=== PATIENT | female | born 1975 | race American Indian/Alaskan Native ===

== ENCOUNTER 2017-11-14 17:49 | Emergency (ER) | payer SELFPAY ==
[2017-11-14 19:55] LABS: Bacteria,Urine 1+ /HPF (Negative); Bilirubin,Urine NEG (Negative); Blood,Urine NEG (Negative); Color,Urine Yellow (Yellow); Mucus,Urine FEW /HPF; Protein,Urine <15 mg/dL mg/dL (Negative); Urobilinogen,Urine < 2.0 mg/dL (<2.0)
[2017-11-14] MEDS ORDERED: TORADOL IM ONE (21:53)
--- NOTE | 2017-11-14 21:57 | Emergency Department Report ---
ED Female HPI - General Chief complaint: Abdominal Pain Stated complaint: URINE RETENTION Time Seen by Provider: 11/14/17 21:52 Source: patient Mode of arrival: Ambulatory Limitations: No Limitations - History of Present Illness Initial comments: 42-year-old female comes in complaining of urinary retention 10 days. She reports she is able to urinate but feels like she is not able to empty all the way. She reports of right flank pain nausea and dysuria. Patient denies any blood in the urine. She denies any fever does admit to nausea and some chills. Patient has past medical history of GERD she has no known drug allergies. MD Complaint: dysuria -: days(s) (10) Location: suprapubic Radiation: R flank Severity: severe Severity scale (0 -10): 8 Quality: cramping, stabbing Consistency: constant Improves with: none Worsens with: urination, movement Are you Now?: No Associated Symptoms: nausea/vomiting, fever/chills - Related Data Sexually active: Yes (men ) Previous Rx's Medication Instructions Recorded Last Taken Type Cephalexin [Keflex] 500 mg PO BID #20 capsule 11/14/17 Unknown Rx Ibuprofen [Motrin 800 MG tab] 800 mg PO Q8HR PRN #15 tablet 11/14/17 Unknown Rx Allergies Allergy/AdvReac Type Severity Reaction Status Date / Time No Known Allergies Allergy Unverified 11/14/17 17:55 ED Review of Systems ROS: Stated complaint: URINE RETENTION Other details as noted in HPI Constitutional: chills Eyes: denies: eye pain, eye discharge, vision change ENT: denies: ear pain, throat pain Respiratory: denies: cough, shortness of breath, wheezing Cardiovascular: denies: chest pain, palpitations Endocrine: no symptoms reported Gastrointestinal: nausea Genitourinary: urgency, dysuria, frequency. denies: hematuria Musculoskeletal: denies: back pain, joint swelling, arthralgia Skin: denies: rash, lesions Neurological: denies: headache, weakness, paresthesias Psychiatric: denies: anxiety, depression Hematological/Lymphatic: denies: easy bleeding, easy bruising ED Past Medical Hx - Past Medical History Previous Medical History?: No Hx GERD: Yes - Surgical History Additional Surgical History: TUBAL LIGATION, BILE DUCT HOLE REPAIRED - Social History Smoking Status: Current Every Day Smoker Substance Use Type: None - Medications Home Medications: Home Medications Medication Instructions Recorded Confirmed Last Taken Type Cephalexin [Keflex] 500 mg PO BID #20 capsule 11/14/17 Unknown Rx Ibuprofen [Motrin 800 MG tab] 800 mg PO Q8HR PRN #15 tablet 11/14/17 Unknown Rx ED Physical Exam - General Limitations: No Limitations General appearance: alert, in no apparent distress - Head Head exam: Present: atraumatic, normocephalic - Eye Eye exam: Present: normal appearance - ENT ENT exam: Present: mucous membranes moist - Neck Neck exam: Present: normal inspection - Respiratory Respiratory exam: Present: normal lung sounds bilaterally. Absent: respiratory distress - Cardiovascular Cardiovascular Exam: Present: regular rate, normal rhythm. Absent: systolic murmur, diastolic murmur, rubs, gallop - GI/Abdominal GI/Abdominal exam: Present: soft, tenderness (right suprapubic) - Extremities Exam Extremities exam: Present: normal inspection - Back Exam Back exam: Present: full ROM, CVA tenderness (R) - Neurological Exam Neurological exam: Present: alert, oriented X3 - Psychiatric Psychiatric exam: Present: normal affect, normal mood - Skin Skin exam: Present: warm, dry, intact, normal color. Absent: rash ED Course Vital Signs 11/14/17 17:55 Temperature 99.4 F Pulse Rate 103 H Respiratory 18 Rate Blood Pressure 115/72 O2 Sat by Pulse 100 Oximetry ED Medical Decision Making - Medical Decision Making Patient's been evaluated by this provider fast track. Discussed the patient that her urine came back positive for urinary tract infection. There is no hematuria noted therefore no CT scan at this time is necessary. Discussed the patient I'll place her antibiotics for 10 days. Discussed the patient to increase her fluids and cranberry juice be sure to void after intercourse since patient admits to having a lot of intercourse. Discussed the patient to follow up with her primary care provider if symptoms persist or gets worse. Critical care attestation.: If time is entered above; I have spent that time in minutes in the direct care of this critically ill patient, excluding procedure time. ED Disposition Clinical Impression: UTI (urinary tract infection) Qualifiers: Urinary tract infection type: acute cystitis Hematuria presence: without hematuria Qualified Code(s): N30.00 - Acute cystitis without hematuria Disposition: TO HOME OR SELFCARE Is pt being admited?: No Does the pt Need Aspirin: No Condition: Stable Instructions: Abdominal Pain (ED), Urinary Tract Infection in Women (ED) Additional Instructions: Complete antibiotic as prescribed. Take ibuprofen as needed for pain. Please increase her fluid intake by 2 L. Follow up with her primary care provider if symptoms persist or gets worse. Prescriptions: Cephalexin [Keflex] 500 mg PO BID #20 capsule Ibuprofen [Motrin 800 MG tab] 800 mg PO Q8HR PRN #15 tablet PRN Reason: Pain Referrals: PRIMARY CARE, [Primary Care Provider] - 3-5 Days [facility] [Provider Group] - 3-5 Days Forms: Work/School Release Form(ED), Accompanied Note
[2017-11-14 22:38] VITALS: BP 117/76
== END 2017-11-14 22:37 | disposition home or self-care (01) ==
LOC: ED 17:49
DX: N30.00 Acute cystitis without hematuria (principal)
CPT/HCPCS: 81001; 96372; 99283; J1885

== ENCOUNTER 2019-01-29 18:15 | Emergency (ER) | payer SELFPAY ==
[2019-01-29 18:33] VITALS: BP 124/70
[2019-01-29] MEDS ORDERED: TORADOL IM STA (20:27)
--- NOTE | 2019-01-29 20:38 | Emergency Department Report ---
ED Back Pain/Injury HPI - General Chief Complaint: Back Pain/Injury Stated Complaint: BACK PAIN Time Seen by Provider: 01/29/19 20:11 Source: patient Limitations: No Limitations - History of Present Illness Initial Comments: 43-year-old female was admitted department complaining of chronic recurrent back pain was in [place] on vacation with a couple granddaughter causing a reem ergence of his back pain. She states that there is no change in character or intensity from the previous flareup with [id number]-[id number] medication is not helping. 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 Reports no numbness or tingling, no saddle paresthesia. No urinary incontinence or urinary retention. No loss of bowel. Pain is dull and throbbing and worse with certain range of motion and palpation. Similar Symptoms Previously: No Place: home Radiation: buttocks (left buttocks region) Quality: dull Consistency: constant Improves With: none Worsens With: none Associated Symptoms: denies: weakness, chest pain, numbness, difficulty walking, cough, constipation, abdominal pain, rash, seizure, shortness of breath - Related Data Previous Rx's Medication Instructions Recorded Last Taken Type Cephalexin [Keflex] 500 mg PO BID #20 capsule 11/14/17 Unknown Rx Ibuprofen [Motrin 800 MG tab] 800 mg PO Q8HR PRN #15 tablet 11/14/17 Unknown Rx Ketorolac [Toradol] 10 mg PO Q6H PRN #15 tablet 01/29/19 Unknown Rx methOCARBAMOL [Robaxin] 750 mg PO Q8H PRN #21 tablet 01/29/19 Unknown Rx Allergies Allergy/AdvReac Type Severity Reaction Status Date / Time No Known Allergies Allergy Verified 01/29/19 18:16 ED Review of Systems ROS: Stated complaint: BACK PAIN Other details as noted in HPI Comment: All other systems reviewed and negative ED Past Medical Hx - Past Medical History Hx GERD: Yes - Surgical History Hx Cholecystectomy: Yes Additional Surgical History: TUBAL LIGATION, BILE DUCT HOLE REPAIRED CARPEL TUNNEL - Social History Smoking Status: Never Smoker Substance Use Type: None - Medications Home Medications: Home Medications Medication Instructions Recorded Confirmed Last Taken Type Cephalexin [Keflex] 500 mg PO BID #20 capsule 11/14/17 Unknown Rx Ibuprofen [Motrin 800 MG tab] 800 mg PO Q8HR PRN #15 tablet 11/14/17 Unknown Rx Ketorolac [Toradol] 10 mg PO Q6H PRN #15 tablet 01/29/19 Unknown Rx methOCARBAMOL [Robaxin] 750 mg PO Q8H PRN #21 tablet 01/29/19 Unknown Rx ED Physical Exam - General Limitations: No Limitations General appearance: alert, in no apparent distress - Head Head exam: Present: atraumatic, normocephalic - Eye Eye exam: Present: normal appearance - ENT ENT exam: Present: mucous membranes moist - Neck Neck exam: Present: normal inspection - Respiratory Respiratory exam: Present: normal lung sounds bilaterally. Absent: respiratory distress - Cardiovascular Cardiovascular Exam: Present: regular rate, normal rhythm. Absent: systolic murmur, diastolic murmur, rubs, gallop - GI/Abdominal GI/Abdominal exam: Present: soft, normal bowel sounds - Extremities Exam Extremities exam: Present: normal inspection - Back Exam Back exam: Present: normal inspection, tenderness (tenderness to the left sacroiliac region. There is pain with seated straight leg raise as well.), paraspinal tenderness. Absent: CVA tenderness (R), CVA tenderness (L), vertebral tenderness - Neurological Exam Neurological exam: Present: alert, oriented X3, CN II-XII intact, normal gait - Psychiatric Psychiatric exam: Present: normal affect, normal mood - Skin Skin exam: Present: warm, dry, intact, normal color. Absent: rash ED Course Vital Signs 01/29/19 18:30 Temperature 98.3 F Pulse Rate 73 Respiratory 16 Rate Blood Pressure 124/70 [Left] O2 Sat by Pulse 96 Oximetry ED Medical Decision Making - Medical Decision Making A 43-year-old female with acute on chronic back pain. 2. Possibly lifting her granddaughter may sustained a strain or have aggravated a lumbar go with radiculopathy.. Requesting work release to give her a work note for 48 hours and give her some medication to help to resolve the pain previously. She had to get spinal injections when she had her last flareup advisor to follow-up with her previous orthopedic provider for further evaluation and treatment recommendations and likely a joint injection Critical care attestation.: If time is entered above; I have spent that time in minutes in the direct care of this critically ill patient, excluding procedure time. ED Disposition Clinical Impression: Lumbago with sciatica, left side Disposition: TO HOME OR SELFCARE Is pt being admited?: No Does the pt Need Aspirin: No Condition: Stable Instructions: Lumbar Radiculopathy (ED) Prescriptions: methOCARBAMOL [Robaxin] 750 mg PO Q8H PRN #21 tablet PRN Reason: Spasms Ketorolac [Toradol] 10 mg PO Q6H PRN #15 tablet PRN Reason: Pain Referrals: PRIMARY CAREMD [Primary Care Provider] - 3-5 Days BABAK SEGUNDO MD [Staff Physician] - 3-5 Days
== END 2019-01-29 21:13 | disposition home or self-care (01) ==
LOC: ED 18:15
DX: M54.42 Lumbago with sciatica, left side (principal); K21.9 Gastro-esophageal reflux disease without esophagitis; Z98.51 Tubal ligation status; Z90.49 Acquired absence of other specified parts of digestive tract
CPT/HCPCS: 96372; 99282; J1885

== ENCOUNTER 2019-03-09 20:42 | Emergency (ER) | payer SELFPAY ==
--- NOTE | 2019-03-09 20:53 | Event Note ---
ED Screening Note Date of service: 03/09/19 Time: 20:48 ED Screening Note: 43 y o female with a hx of back pain presents with worsening back pain states was seen here last week for same pain ststaes hx of herniated disc denies dysuria, fever This initial assessment/diagnostic orders/clinical plan/treatment(s) is/are subject to change based on patients health status, clinical progression and re- assessment by fellow clinical providers in the ED. Further treatment and workup at subsequent clinical providers discretion. Patient/guardian urged not to elope from the ED as their condition may be serious if not clinically assessed and managed. Initial orders include: Acc evaluate pain control
[2019-03-09] MEDS ORDERED: MORPHINE IM STA (23:59)
[2019-03-09] MEDS ORDERED: DELTASONE PO STA (23:59)
--- NOTE | 2019-03-10 00:06 | Emergency Department Report ---
ED Back Pain/Injury HPI - General Chief Complaint: Back Pain/Injury Stated Complaint: BACK PAIN Time Seen by Provider: 03/09/19 20:47 Source: patient Limitations: No Limitations - History of Present Illness Initial Comments: 43-year-old female with past history of chronic recurrent back pain presents to emergency department complaining of continued flareup. States that she did to her nephew several weeks ago, she developed severe pain to the lower back. She initially seen emergency Department treatment time for inflammatory muscle relaxers, but reports continued pain to the back despite taking the medication. She has continued to work at [employer] the [employer] working 60-80 weeks and is unsure why her back has improved. Reports no loss of bowel or bladder, no s addle paresthesia. MD Complaint: back pain -: Gradual Similar Symptoms Previously: No Radiation: none Severity: mild Quality: dull Consistency: constant Improves With: none Worsens With: none Associated Symptoms: denies: chest pain, difficulty walking, cough, incontinence, fever/chills, constipation, abdominal pain, rash, seizure, shortness of breath - Related Data Previous Rx's Medication Instructions Recorded Last Taken Type Cephalexin [Keflex] 500 mg PO BID #20 capsule 11/14/17 Unknown Rx Ibuprofen [Motrin 800 MG tab] 800 mg PO Q8HR PRN #15 tablet 11/14/17 Unknown Rx Ketorolac [Toradol] 10 mg PO Q6H PRN #15 tablet 01/29/19 Unknown Rx methOCARBAMOL [Robaxin] 750 mg PO Q8H PRN #21 tablet 01/29/19 Unknown Rx methOCARBAMOL [Robaxin TAB] 750 mg PO Q8H #20 tablet 03/10/19 Unknown Rx predniSONE [Deltasone] 20 mg PO QDAY #7 tab 03/10/19 Unknown Rx Allergies Allergy/AdvReac Type Severity Reaction Status Date / Time No Known Allergies Allergy Verified 01/29/19 18:16 ED Review of Systems ROS: Stated complaint: BACK PAIN Other details as noted in HPI Comment: All other systems reviewed and negative ED Past Medical Hx - Past Medical History Previous Medical History?: Yes Hx GERD: Yes - Surgical History Past Surgical History?: Yes Hx Cholecystectomy: Yes Additional Surgical History: TUBAL LIGATION, BILE DUCT HOLE REPAIRED CARPEL TUNNEL - Social History Smoking Status: Current Every Day Smoker Substance Use Type: None - Medications Home Medications: Home Medications Medication Instructions Recorded Confirmed Last Taken Type Cephalexin [Keflex] 500 mg PO BID #20 capsule 11/14/17 Unknown Rx Ibuprofen [Motrin 800 MG tab] 800 mg PO Q8HR PRN #15 tablet 11/14/17 Unknown Rx Ketorolac [Toradol] 10 mg PO Q6H PRN #15 tablet 01/29/19 Unknown Rx methOCARBAMOL [Robaxin] 750 mg PO Q8H PRN #21 tablet 01/29/19 Unknown Rx methOCARBAMOL [Robaxin TAB] 750 mg PO Q8H #20 tablet 03/10/19 Unknown Rx predniSONE [Deltasone] 20 mg PO QDAY #7 tab 03/10/19 Unknown Rx ED Physical Exam - General Limitations: No Limitations General appearance: alert, in no apparent distress - Head Head exam: Present: atraumatic, normocephalic - Eye Eye exam: Present: normal appearance, PERRL, EOMI Pupils: Present: normal accommodation - ENT ENT exam: Present: normal exam, mucous membranes moist, TM's normal bilaterally - Neck Neck exam: Present: normal inspection, tenderness, full ROM. Absent: lymphadenopathy, thyromegaly - Respiratory Respiratory exam: Present: normal lung sounds bilaterally. Absent: respiratory distress, wheezes, chest wall tenderness, accessory muscle use - Cardiovascular Cardiovascular Exam: Present: regular rate, normal rhythm. Absent: systolic murmur, diastolic murmur, rubs, gallop - GI/Abdominal GI/Abdominal exam: Present: soft, normal bowel sounds - Extremities Exam Extremities exam: Present: normal inspection - Back Exam Back exam: Present: normal inspection, tenderness - Neurological Exam Neurological exam: Present: alert, oriented X3 - Psychiatric Psychiatric exam: Present: normal affect, normal mood - Skin Skin exam: Present: warm, dry, intact, normal color. Absent: rash ED Course Vital Signs 03/09/19 03/10/19 20:47 00:56 Temperature 98.2 F Pulse Rate 86 Respiratory 18 16 Rate Blood Pressure 128/76 O2 Sat by Pulse 99 Oximetry ED Medical Decision Making - Medical Decision Making With 3-year-old female with chronic, recurrent lower back pain. She didn't play golf for the last several months. CT scan does confirm arthritis with some lumbar disc pathology. She's been instructed to follow-up with orthopedic for for evaluation and treatment options and also understands she needs an MRI and likely nerve conduction studies as well. She did managing her chronic pain with Motrin. We'll give her some muscle relaxers and still was in the emergency department and advised her to decrease her work day from 60-8 hours to 20-40 hours also been instructed on proper icing and lumbar therapy Critical care attestation.: If time is entered above; I have spent that time in minutes in the direct care of this critically ill patient, excluding procedure time. ED Disposition Clinical Impression: Chronic lumbar radiculopathy, Lumbar disc herniation with radiculopathy, Discogenic low back pain Disposition: TO HOME OR SELFCARE Is pt being admited?: No Does the pt Need Aspirin: No Condition: Stable Instructions: Lumbar Radiculopathy (ED), Arthralgia (ED), Low Back Strain (ED) Prescriptions: predniSONE [Deltasone] 20 mg PO QDAY #7 tab methOCARBAMOL [Robaxin TAB] 750 mg PO Q8H #20 tablet Referrals: ALIS MALAVE MD [Primary Care Provider] - 3-5 Days BABAK SEGUNDO MD [Staff Physician] - 3-5 Days
[2019-03-10] MEDS ORDERED: ZOFRAN ODT ONE (00:40)
--- NOTE | 2019-03-10 01:19 | Cat Scan Report ---
CT lumbar spine wo con INDICATION: MAIN: severe chronic lower back pain. TECHNIQUE: All CT scans at this location are performed using the following dose modulation technique: Automated exposure control. CONTRAST: None. COMPARISON: None available. FINDINGS: Satisfactory alignment without vertebral compression. Prominent degenerative disc disease i s present at L5-S1. There is discogenic sclerosis at both L5 and S1 as well as disc bulging. No local ized disc herniation is present. Negative for advanced facet disease. IMPRESSION: Localized prominent degenerative disc disease at L5-S1 with narrowing, vacuum phenomenon and prominent discogenic sclerosis. Signer Name: Andrew Pack MD Signed: 03/10/2019 1:15 AM Workstation Name: [id number]
[2019-03-10] MEDS ORDERED: ZOFRAN ODT PO ONE (03:55)
[2019-03-10 04:00] VITALS: BP 117/72
== END 2019-03-10 03:58 | disposition home or self-care (01) ==
LOC: ED 20:42
DX: M54.16 Radiculopathy, lumbar region (principal); M54.5 Low back pain
CPT/HCPCS: 72131; 96372; 99283; J2270; J7512; Q0162

== ENCOUNTER 2019-05-05 02:26 | Inpatient (IN) | payer SELFPAY ==
[2019-05-05] MEDS ORDERED: MORPHINE IV ONE ×2 (02:39→05:45)
[2019-05-05] MEDS ORDERED: ZOFRAN IV ONE ×3 (02:39→08:27)
[2019-05-05] MEDS ORDERED: ZOFRAN ONE (02:41)
[2019-05-05] MEDS ORDERED: MORPHINE ONE (02:41)
[2019-05-05 03:01] LABS: Basophils % (Auto) 0.2 % (0.0-1.8); Hematocrit 51.6 % (30.3-42.9); Hemoglobin 17.9 gm/dl (10.1-14.3); Lymphocytes # (Auto) 1.4 K/mm3 (1.2-5.4); Mean Corpuscular HGB Conc 35 % (30-34); Mean Corpuscular Volume 90 fl (79-97); Monocytes # (Auto) 1.8 K/mm3 (0.0-0.8); Platelet Count 446 K/mm3 (140-440); Red Blood Count 5.75 M/mm3 (3.65-5.03); Red Cell Distribution Width 13.5 % (13.2-15.2)
[2019-05-05] MEDS ORDERED: TORADOL IV ONE (03:35)
[2019-05-05] MEDS ORDERED: TORADOL ONE (03:38)
[2019-05-05 03:46] LABS: Albumin 5.8 g/dL (3.9-5)
[2019-05-05] MEDS ORDERED: NACL 0.9% 1000 ML IV ONE (04:19)
[2019-05-05] MEDS ORDERED: CEFEPIME/NS 2 GM/100 ML 2 GM/100 ML BAG IV ONE (04:19)
--- NOTE | 2019-05-05 07:57 | Emergency Department Report ---
ED Abdominal Pain HPI - General Chief Complaint: Abdominal Pain Stated Complaint: VOMITING Time Seen by Provider: 05/05/19 07:44 Source: patient Mode of arrival: Wheelchair Limitations: No Limitations - History of Present Illness Initial Comments: Patient is a 43-year-old female that presents emergency room with complaints of abdominal pain and intractable nausea vomiting. Patient states her pain started yesterday. Patient denies fever and chills. Patient states the pain is in her generalized abdomen. Patient states her pain is a 10 out of 10. Patient states her pain is better with rest and worse with movement and vomiting. MD Complaint: abdominal pain -: Sudden Location: diffuse Radiation: none Migration to: no migration Severity: severe Severity scale (0 -10): 10 Quality: stabbing Consistency: constant Improves With: rest Worsens With: vomiting, movement Associated Symptoms: nausea, vomiting. denies: diarrhea, fever, chills, constipation, dysuria, hematemesis, hematochezia, melena, hematuria, anorexia, syncope - Related Data LMP (females 10-50): this week Previous Rx's Medication Instructions Recorded Last Taken Type Cephalexin [Keflex] 500 mg PO BID #20 capsule 11/14/17 Unknown Rx Ibuprofen [Motrin 800 MG tab] 800 mg PO Q8HR PRN #15 tablet 11/14/17 Unknown Rx Ketorolac [Toradol] 10 mg PO Q6H PRN #15 tablet 01/29/19 Unknown Rx methOCARBAMOL [Robaxin] 750 mg PO Q8H PRN #21 tablet 01/29/19 Unknown Rx methOCARBAMOL [Robaxin TAB] 750 mg PO Q8H #20 tablet 03/10/19 Unknown Rx predniSONE [Deltasone] 20 mg PO QDAY #7 tab 03/10/19 Unknown Rx Allergies Allergy/AdvReac Type Severity Reaction Status Date / Time No Known Allergies Allergy Verified 01/29/19 18:16 ED Review of Systems ROS: Stated complaint: VOMITING Other details as noted in HPI Constitutional: denies: chills, fever Eyes: denies: eye pain, eye discharge, vision change ENT: denies: ear pain, throat pain Respiratory: denies: cough, shortness of breath, wheezing Cardiovascular: denies: chest pain, palpitations Endocrine: no symptoms reported Gastrointestinal: abdominal pain, nausea, vomiting. denies: diarrhea Genitourinary: denies: urgency, dysuria, discharge Musculoskeletal: denies: back pain, joint swelling, arthralgia Skin: denies: rash, lesions Neurological: denies: headache, weakness, paresthesias Psychiatric: denies: anxiety, depression Hematological/Lymphatic: denies: easy bleeding, easy bruising ED Past Medical Hx - Past Medical History Previous Medical History?: Yes Hx GERD: Yes - Surgical History Past Surgical History?: Yes Hx Cholecystectomy: Yes Additional Surgical History: TUBAL LIGATION, BILE DUCT HOLE REPAIRED CARPEL TUNNEL, bowel s/p 2011 - Family History Family history: no significant - Social History Smoking Status: Never Smoker Substance Use Type: None - Medications Home Medications: Home Medications Medication Instructions Recorded Confirmed Last Taken Type Cephalexin [Keflex] 500 mg PO BID #20 capsule 11/14/17 Unknown Rx Ibuprofen [Motrin 800 MG tab] 800 mg PO Q8HR PRN #15 tablet 11/14/17 Unknown Rx Ketorolac [Toradol] 10 mg PO Q6H PRN #15 tablet 01/29/19 Unknown Rx methOCARBAMOL [Robaxin] 750 mg PO Q8H PRN #21 tablet 01/29/19 Unknown Rx methOCARBAMOL [Robaxin TAB] 750 mg PO Q8H #20 tablet 03/10/19 Unknown Rx predniSONE [Deltasone] 20 mg PO QDAY #7 tab 03/10/19 Unknown Rx ED Physical Exam - General Limitations: No Limitations General appearance: alert, in no apparent distress - Head Head exam: Present: atraumatic, normocephalic - Eye Eye exam: Present: normal appearance - ENT ENT exam: Present: mucous membranes moist - Neck Neck exam: Present: normal inspection - Respiratory Respiratory exam: Present: normal lung sounds bilaterally. Absent: respiratory distress, wheezes - Cardiovascular Cardiovascular Exam: Present: regular rate, normal rhythm. Absent: systolic murmur, diastolic murmur, rubs, gallop - GI/Abdominal GI/Abdominal exam: Present: soft, tenderness, normal bowel sounds - Extremities Exam Extremities exam: Present: normal inspection - Back Exam Back exam: Present: normal inspection - Neurological Exam Neurological exam: Present: alert, oriented X3 - Psychiatric Psychiatric exam: Present: normal affect, normal mood - Skin Skin exam: Present: warm, dry, intact, normal color. Absent: rash ED Course Vital Signs 05/05/19 05/05/19 05/05/19 02:30 02:47 06:14 Temperature 98 F Pulse Rate 114 H Respiratory 18 16 16 Rate Blood Pressure 134/96 O2 Sat by Pulse 99 Oximetry 05/05/19 05/05/19 05/05/19 08:25 08:31 08:45 Temperature Pulse Rate 81 78 76 Respiratory 26 H 18 11 L Rate Blood Pressure 159/96 159/96 O2 Sat by Pulse 99 100 96 Oximetry 05/05/19 05/05/19 05/05/19 09:01 09:13 09:21 Temperature 97.8 F Pulse Rate 71 85 Respiratory 10 L 13 Rate Blood Pressure 124/67 124/67 O2 Sat by Pulse 94 99 Oximetry 05/05/19 05/05/19 05/05/19 09:23 09:31 09:45 Temperature Pulse Rate 69 Respiratory 20 16 Rate Blood Pressure 124/67 125/73 O2 Sat by Pulse 100 99 96 Oximetry 05/05/19 05/05/19 05/05/19 10:00 10:15 10:30 Temperature Pulse Rate 62 73 73 Respiratory 10 L 14 15 Rate Blood Pressure 114/70 133/78 131/89 O2 Sat by Pulse 96 96 96 Oximetry 05/05/19 05/05/19 05/05/19 10:45 11:00 11:05 Temperature 98.8 F Pulse Rate 58 L 67 Respiratory 11 L 9 L Rate Blood Pressure 135/73 131/80 O2 Sat by Pulse 98 96 Oximetry 05/05/19 05/05/19 05/05/19 11:11 11:21 11:31 Temperature Pulse Rate 62 81 79 Respiratory 11 L 17 18 Rate Blood Pressure 131/80 133/95 127/97 O2 Sat by Pulse 97 100 96 Oximetry - Reevaluation(s) Reevaluation #1: I discussed all results with patient. I discussed plan of care outpatient. Patient agrees plan of care and admission. Patient was admitted to the hospital service. 05/05/19 09:07 - Consultations Consultation #1: Hospitalist consult for admission. Hospitalist admit patient. Bridge orders place. 05/05/19 09:06 ED Medical Decision Making - Lab Data Result diagrams: 05/05/19 02:40 05/05/19 03:16 - Radiology Data Radiology results: report reviewed CT ABDOMEN AND PELVIS WITHOUT CONTRAST HISTORY: Nausea and vomiting and abdominal pain. COMPARISON: None TECHNIQUE: Routine abdominal and pelvic CT exam performed without contrast. Lack of intravenous contrast limits evaluation of the vascular and solid organs.. All CT scans at this location are performed using CT dose reduction for ALARA by means of automated exposure control. FINDINGS: CT ABDOMEN: Lung Bases: Clear. Liver: Normal. Biliary: Normal bile ducts status post cholecystectomy. Stomach and duodenum: Normal. Spleen: No significant abnormality. Unenlarged. Pancreas: Normal. Adrenals: Normal. Kidneys: Normal with nondilated renal collecting systems and ureters. No urinary calculus, mass or cyst. Lymphatics: No lymphadenopathy. Vasculature: No significant abnormality. Bowel/Peritoneum: No significant abnormality. No free air. No free fluid. Normal appendix. CT PELVIC: : Normal uterus and ovaries. Normal urinary bladder. Lymphatics: No lymphadenopathy. Additional findings: Normal rectum and sigmoid colon. No free pelvic fluid. Osseous Structures: No suspicious bone lesions. L5-S1 degenerative disc disease with narrowing of the disc space, vacuum disc phenomenon and endplate sclerosis. IMPRESSION: 1. Normal abdomen status post cholecystectomy. 2. Normal pelvis. 3. L5-S1 degenerative disc disease. - Medical Decision Making Patient is a 43-year-old female that presents emergency room with complaints of intractable nausea vomiting abdominal pain. Patient found to be tachycardic and in severe abdominal pain. Patient had a CT done which is negative for acute findings. Patient's labs shows lactic acidosis as well as elevated creatinine consistent with renal failure and elevated WBC. Patient will be admitted to the hospitalist service. Patient given fluids and antibiotics. - Differential Diagnosis sepsis. Abdominal pain. Colitis. Gastroenteritis. Nausea vomiting. Critical Care Time: Yes Critical care attestation.: If time is entered above; I have spent that time in minutes in the direct care of this critically ill patient, excluding procedure time. Critical Care Time: 35 minutes ED Disposition Clinical Impression: Lactic acid acidosis, Intractable vomiting with nausea, SIRS (systemic inflamma tory response syndrome) Abdominal pain Qualifiers: Abdominal location: generalized Qualified Code(s): R10.84 - Generalized abdominal pain Renal failure Qualifiers: Renal failure chronicity: acute Acute renal failure type: unspecified Qualified Code(s): N17.9 - Acute kidney failure, unspecified Sepsis Qualifiers: Sepsis type: sepsis due to unspecified organism Sepsis acute organ dysfunction status: with acute organ dysfunction Severe sepsis acute organ dysfunction type: acute renal failure Acute renal failure type: unspecified Severe sepsis shock status: without septic shock Qualified Code(s): A41.9 - Sepsis, unspecified organism; R65.20 - Severe sepsis without septic shock; N17.9 - Acute kidney failure, unspecified UTI (urinary tract infection) Qualifiers: Urinary tract infection type: acute cystitis Hematuria presence: with hematuria Qualified Code(s): N30.01 - Acute cystitis with hematuria Disposition: 09 OP ADMIT IP TO THIS HOSP Is pt being admited?: Yes Does the pt Need Aspirin: No Condition: Critical Time of Disposition: 09:01
[2019-05-05] MEDS ORDERED: DILAUDID IV ONE ×2 (08:27→11:29)
--- NOTE | 2019-05-05 08:37 | Cat Scan Report ---
CT ABDOMEN AND PELVIS WITHOUT CONTRAST HISTORY: Nausea and vomiting and abdominal pain. COMPARISON: None TECHNIQUE: Routine abdominal and pelvic CT exam performed without contrast. Lack of intravenous cont rast limits evaluation of the vascular and solid organs.. All CT scans at this location are performed using CT dose reduction for ALARA by means of automated exposure control. FINDINGS: CT ABDOMEN: Lung Bases: Clear. Liver: Normal. Biliary: Normal bile ducts status post cholecystectomy. Stomach and duodenum: Normal. Spleen: No significant abnormality. Unenlarged. Pancreas: Normal. Adrenals: Normal. Kidneys: Normal with nondilated renal collecting systems and ureters. No urinary calculus, mass or cy st. Lymphatics: No lymphadenopathy. Vasculature: No significant abnormality. Bowel/Peritoneum: No significant abnormality. No free air. No free fluid. Normal appendix. CT PELVIC: : Normal uterus and ovaries. Normal urinary bladder. Lymphatics: No lymphadenopathy. Additional findings: Normal rectum and sigmoid colon. No free pelvic fluid. Osseous Structures: No suspicious bone lesions. L5-S1 degenerative disc disease with narrowing of the disc space, vacuum disc phenomenon and endplate sclerosis. IMPRESSION: 1. Normal abdomen status post cholecystectomy. 2. Normal pelvis. 3. L5-S1 degenerative disc disease. Signer Name: Troy Machado MD Signed: 05/05/2019 8:32 AM Workstation Name: [id number]
[2019-05-05 09:40] LABS: Bacteria,Urine 2+ /HPF (Negative); Bilirubin,Urine NEG (Negative); Blood,Urine MOD (Negative); Color,Urine Yellow (Yellow); Mucus,Urine 3+ /HPF; Urobilinogen,Urine < 2.0 mg/dL (<2.0)
[2019-05-05] MEDS ORDERED: REGLAN IV ONE (11:29)
[2019-05-05] MEDS ORDERED: TYLENOL PO PRN (11:30)
[2019-05-05] MEDS ORDERED: ZOFRAN IV PRN (11:30)
[2019-05-05] MEDS ORDERED: REGLAN ONE (11:34)
[2019-05-05] MEDS ORDERED: DILAUDID ONE (11:34)
[2019-05-05] MEDS ORDERED: TORADOL IV PRN (11:36)
[2019-05-05 12:44] LABS: Amphetamine Screen,Urine PRESUMPTIVE NEGATIVE; Benzodiazepines Screen,Urine PRESUMPTIVE NEGATIVE; Cocaine Screen,Urine PRESUMPTIVE NEGATIVE; Methadone Screen,Urine PRESUMPTIVE NEGATIVE
[2019-05-05 12:57] LABS: Cannabinoid Screen,Urine PRESUMPTIVE POSITIVE; Opiate Screen,Urine PRESUMPTIVE POSITIVE
[2019-05-05] MEDS: SODIUM CHLORIDE FLUSH SYRINGE 10 ML IV SCH ×2 (13:21→21:11)
--- NOTE | 2019-05-05 13:25 | Gastroenterology Consultation ---
History of Present Illness - Reason for Consult Consult date: 05/05/19 intractable N/V Requesting physician: ALICIA COHEN - History of Present Illness Patient is a 43 y/o female who presented to ED with c/o diffuse abdominal pain and intractable N/V since yesterday to which GI has been consulted. Abd CT upon admission showed degenerative disc disease but no acute process. This afternoon patient was resting in bed w/o acute distress but ill appearing (multiple epi sodes of dry heaves during exam). She reports acute onset of diffuse abd pain with with N/V and loose stools which have now resolved on Friday. Only other episode of similar symptoms was in 2011 with GB disease (s/p CCY). Symptoms exacerbated with movement and slightly alleviated with lying in bath tub with hot water. No recent travel, abx therapy, or known ill contacts. Admits to heavy NSAID use with Ibuprofen but no hx of PUD. Uses marijuana daily but no ETOH abuse or hx of liver disease. Denies fever, CP, SOB, signs of bleeding, or constipation. Past History Past Medical History: GERD Past Surgical History: cholecystectomy, Other (TUBAL LIGATION, BILE DUCT HOLE REPAIRED, CARPEL TUNNEL) Social history: other (marijuana). denies: smoking, alcohol abuse Medications and Allergies Allergies Allergy/AdvReac Type Severity Reaction Status Date / Time No Known Allergies Allergy Verified 01/29/19 18:16 Home Medications Medication Instructions Recorded Confirmed Last Taken Type Cephalexin [Keflex] 500 mg PO BID #20 capsule 11/14/17 Unknown Rx Ibuprofen [Motrin 800 MG tab] 800 mg PO Q8HR PRN #15 tablet 11/14/17 Unknown Rx Ketorolac [Toradol] 10 mg PO Q6H PRN #15 tablet 01/29/19 Unknown Rx methOCARBAMOL [Robaxin] 750 mg PO Q8H PRN #21 tablet 01/29/19 Unknown Rx methOCARBAMOL [Robaxin TAB] 750 mg PO Q8H #20 tablet 03/10/19 Unknown Rx predniSONE [Deltasone] 20 mg PO QDAY #7 tab 03/10/19 Unknown Rx Active Meds: Active Medications Acetaminophen (Tylenol) 650 mg PO Q4H PRN PRN Reason: Pain MILD(1-3)/Fever >100.5/WALLACE Hydromorphone HCl (Dilaudid) 1 mg IV Q3H PRN PRN Reason: Pain, Moderate (4-6) Ceftriaxone Sodium (Rocephin/Ns 1 Gm/50 Ml) 1 gm in 50 mls @ 100 mls/hr IV Q24HR CHAD; Protocol Ketorolac Tromethamine (Toradol) 30 mg IV Q6H PRN PRN Reason: Pain, Moderate (4-6) Stop: 05/10/19 11:35 Metoclopramide HCl (Reglan) 10 mg IV Q6H CHAD Ondansetron HCl (Zofran) 4 mg IV Q8H PRN PRN Reason: Nausea And Vomiting Last Admin: 05/05/19 13:19 Dose: 4 mg Documented by: Sodium Chloride (Sodium Chloride Flush Syringe 10 Ml) 10 ml IV BID CHAD Last Admin: 05/05/19 13:21 Dose: 10 ml Documented by: Sodium Chloride (Sodium Chloride Flush Syringe 10 Ml) 10 ml IV PRN PRN PRN Reason: LINE FLUSH Zolpidem Tartrate (Ambien) 5 mg PO QHS PRN PRN Reason: Insomnia medications reviewed/updated as required Review of Systems - Review of Systems All systems: negative Gastrointestinal: abdominal pain (diffuse), nausea, vomiting Exam - Constitutional Vital Signs: Temp Pulse Resp BP Pulse Ox 98.4 F 79 18 128/66 96 05/05/19 11:52 05/05/19 11:31 05/05/19 11:52 05/05/19 11:52 05/05/19 11:31 General appearance: no acute distress, other (ill appearing) - EENT Eyes: PERRL, EOM intact ENT: hearing intact - Respiratory Respiratory effort: normal Respiratory: bilateral: CTA - Cardiovascular Rhythm: regular - Gastrointestinal General gastrointestinal: Present: soft, tender, non-distended, normal bowel sounds - Neurologic Neurological: alert and oriented x3 - Labs CBC & Chem 7: 05/05/19 02:40 05/05/19 03:16 Lab Results: Laboratory Results - last 24 hr 05/05/19 05/05/19 05/05/19 02:40 03:16 03:39 WBC 17.6 H RBC 5.75 H Hgb 17.9 H Hct 51.6 H MCV 90 MCH 31 MCHC 35 H RDW 13.5 Plt Count 446 H Lymph % (Auto) 8.0 L Bureau % (Auto) 10.0 H Eos % (Auto) 0.0 Baso % (Auto) 0.2 Lymph # 1.4 Bureau # 1.8 H Eos # 0.0 Baso # 0.0 Seg Neutrophils % 81.8 H Seg Neutrophils # 14.4 H VBG pH Sodium 134 L Potassium 3.7 Chloride 90.9 L Carbon Dioxide 15 L Anion Gap 32 BUN 44 H Creatinine 4.3 H Estimated GFR 14 BUN/Creatinine Ratio 10 Glucose 222 H Ketones Quantitative Lactic Acid Calcium 11.0 H Total Bilirubin 0.70 AST 20 ALT 13 Alkaline Phosphatase 105 Total Protein 10.7 H Albumin 5.8 H Albumin/Globulin Ratio 1.2 HCG, Qual Negative Urine Color Urine Turbidity Urine pH Ur Specific [place] Urine Protein Urine Glucose (UA) Urine Ketones Urine Blood Urine Nitrite Urine Bilirubin Urine Urobilinogen Ur Leukocyte Esterase Urine WBC (Auto) Urine RBC (Auto) U Epithel Cells (Auto) Urine Bacteria (Auto) Urine Mucus Urine Opiates Screen Urine Methadone Screen Ur Barbiturates Screen Ur Phencyclidine Scrn Ur Amphetamines Screen U Benzodiazepines Scrn Urine Cocaine Screen U Marijuana (THC) Screen Drugs of Abuse Note 05/05/19 05/05/19 05/05/19 04:49 04:49 04:49 WBC RBC Hgb Hct MCV MCH MCHC RDW Plt Count Lymph % (Auto) Bureau % (Auto) Eos % (Auto) Baso % (Auto) Lymph # Bureau # Eos # Baso # Seg Neutrophils % Seg Neutrophils # VBG pH 7.408 Sodium Potassium Chloride Carbon Dioxide Anion Gap BUN Creatinine Estimated GFR BUN/Creatinine Ratio Glucose Ketones Quantitative Negative Lactic Acid 2.50 H* Calcium Total Bilirubin AST ALT Alkaline Phosphatase Total Protein Albumin Albumin/Globulin Ratio HCG, Qual Urine Color Urine Turbidity Urine pH Ur Specific [place] Urine Protein Urine Glucose (UA) Urine Ketones Urine Blood Urine Nitrite Urine Bilirubin Urine Urobilinogen Ur Leukocyte Esterase Urine WBC (Auto) Urine RBC (Auto) U Epithel Cells (Auto) Urine Bacteria (Auto) Urine Mucus Urine Opiates Screen Urine Methadone Screen Ur Barbiturates Screen Ur Phencyclidine Scrn Ur Amphetamines Screen U Benzodiazepines Scrn Urine Cocaine Screen U Marijuana (THC) Screen Drugs of Abuse Note 05/05/19 05/05/19 05/05/19 06:08 07:57 09:13 WBC RBC Hgb Hct MCV MCH MCHC RDW Plt Count Lymph % (Auto) Bureau % (Auto) Eos % (Auto) Baso % (Auto) Lymph # Bureau # Eos # Baso # Seg Neutrophils % Seg Neutrophils # VBG pH Sodium Potassium Chloride Carbon Dioxide Anion Gap BUN Creatinine Estimated GFR BUN/Creatinine Ratio Glucose Ketones Quantitative Lactic Acid 2.80 H* 2.10 H* Calcium Total Bilirubin AST ALT Alkaline Phosphatase Total Protein Albumin Albumin/Globulin Ratio HCG, Qual Urine Color Yellow Urine Turbidity Cloudy Urine pH 5.0 Ur Specific [place] 1.027 Urine Protein 100 mg/dl Urine Glucose (UA) Neg Urine Ketones Tr Urine Blood Mod Urine Nitrite Neg Urine Bilirubin Neg Urine Urobilinogen < 2.0 Ur Leukocyte Esterase Mod Urine WBC (Auto) 31.0 H Urine RBC (Auto) 9.0 U Epithel Cells (Auto) 12.0 Urine Bacteria (Auto) 2+ Urine Mucus 3+ Urine Opiates Screen Urine Methadone Screen Ur Barbiturates Screen Ur Phencyclidine Scrn Ur Amphetamines Screen U Benzodiazepines Scrn Urine Cocaine Screen U Marijuana (THC) Screen Drugs of Abuse Note 05/05/19 05/05/19 09:13 09:28 WBC RBC Hgb Hct MCV MCH MCHC RDW Plt Count Lymph % (Auto) Bureau % (Auto) Eos % (Auto) Baso % (Auto) Lymph # Bureau # Eos # Baso # Seg Neutrophils % Seg Neutrophils # VBG pH Sodium Potassium Chloride Carbon Dioxide Anion Gap BUN Creatinine Estimated GFR BUN/Creatinine Ratio Glucose Ketones Quantitative Lactic Acid 1.10 Calcium Total Bilirubin AST ALT Alkaline Phosphatase Total Protein Albumin Albumin/Globulin Ratio HCG, Qual Urine Color Urine Turbidity Urine pH Ur Specific [place] Urine Protein Urine Glucose (UA) Urine Ketones Urine Blood Urine Nitrite Urine Bilirubin Urine Urobilinogen Ur Leukocyte Esterase Urine WBC (Auto) Urine RBC (Auto) U Epithel Cells (Auto) Urine Bacteria (Auto) Urine Mucus Urine Opiates Screen Presumptive positive Urine Methadone Screen Presumptive negative Ur Barbiturates Screen Presumptive negative Ur Phencyclidine Scrn Presumptive negative Ur Amphetamines Screen Presumptive negative U Benzodiazepines Scrn Presumptive negative Urine Cocaine Screen Presumptive negative U Marijuana (THC) Screen Presumptive positive Drugs of Abuse Note Disclamer Assessment and Plan 1.intractable N/V 2.abd pain -afebrile -WBC 17.6 -H/H 17.9/51.6- no signs of active bleeding -BUN 44, creat 4.3 -LFTs WNL -abd CT w/o acute process (degenerative disc disease) -etiology unclear- PUD given heavy NSAID use vs cannabinoid hyperemesis (daily marijuana use) vs other (uremia with elevated creat) -will schedule for EGD today for further evaluation (r/o GOO or other GI pathology) -Keep NPO -start on PPI -continue antiemetics and supportive care -limit narcotics for this may exacerbate symptoms -further recommendation to follow EGD results
[2019-05-05] MEDS: ROCEPHIN/NS 1 GM/50 ML 1 GM/50 ML BAG IV SCH (13:57)
[2019-05-05] MEDS: REGLAN IV SCH ×2 (14:02→18:47)
[2019-05-05] MEDS ORDERED: NACL 0.9% 1000 ML 1,000 ML ONE (15:42)
--- NOTE | 2019-05-05 16:07 | Anesthesia Consultation ---
Anesthesia Consult and Med Hx Date of service: 05/05/19 - Airway Anesthetic Teeth Evaluation: Poor (loose right top premolar and right top incisor) ROM Head & Neck: Adequate Mental/Hyoid Distance: Adequate Mallampati Class: Class II Intubation Access Assessment: Probably Good - Pulmonary Exam CTA: Yes - Cardiac Exam Cardiac Exam: RRR - Pre-Operative Health Status ASA Pre-Surgery Classification: ASA2 Proposed Anesthetic Plan: MAC - Pulmonary Hx Respiratory Symptoms: No - Cardiovascular System Hx Hypertension: No - Central Nervous System CVA: No - Gastrointestinal Hx Gastroesophageal Reflux Disease: Yes - Endocrine 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
--- NOTE | 2019-05-05 16:08 | Anesthesia Day of Surgery ---
Anesthesia Day of Surgery - Day of Surgery Patient Examined: Yes Patient H&P Reviewed: Yes Patient is NPO: Yes
[2019-05-05] MEDS ORDERED: D50W (25GM) Syringe IV PRN (16:10)
[2019-05-05] MEDS ORDERED: DIPRIVAN 10 MG/ML IV ONE ×3 (16:23→17:52)
[2019-05-05] MEDS ORDERED: XYLOCAINE 2% INFILTRATI ONE (16:23)
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
--- NOTE | 2019-05-05 17:19 | Post Operative Note ---
Pre-op diagnosis: N/V/Abdominal pain Post-op diagnosis: other (Gastritis/duodenitis/esophagitis, Hiatal hernia, No GOO) Findings: 1. Erosive gastritis and duodenitis, cold bx 2. Small hiatal hernia 3. LA Grade A esophagitis 4. No gastric outlet obstruction Procedure: EGD with cold biopsy Anesthesia: MAC Surgeon: NGOC MEDINA Estimated blood loss: minimal Pathology: list (1. Gastric antrum) Specimen disposition: to lab Condition: stable Disposition: floor (Recs: 1. Advance diet; PO protonix. 2. D/C all NSAIDs. 3. OK to d/c home when renal issues and N/V resolve. Will sign off; please call if needed.)
--- NOTE | 2019-05-05 17:25 | Operative Report ---
PROCEDURE PERFORMED: Esophagogastroduodenoscopy with cold biopsy. PREOPERATIVE DIAGNOSES: Nausea, vomiting and abdominal pain. POSTOPERATIVE DIAGNOSES: Gastritis, duodenitis, esophagitis, hiatal hernia, no evidence of gastric outlet obstruction. ENDOSCOPIST: Anmol Little M.D. INSTRUMENT: Olympus video endoscope. MEDICATIONS: MAC anesthesia by [facility]. COMPLICATIONS: No apparent complications. ESTIMATED BLOOD LOSS: Minimal. SPECIMENS: Gastric antrum. IMPLANTS: None. ASSISTANTS: None. CONDITION AT COMPLETION: Stable. TECHNIQUE: The patient was informed of the risks and benefits of the procedure. She signed the informed consent to proceed. She was placed in the left lateral decubitus position. The above sedative medications were given. Her vital signs remained stable throughout the procedure. The instrument was advanced from the mouth to the second portion of the duodenum under direct visualization. At that point, the bowel was insufflated and the endoscope was slowly withdrawn. FINDINGS: 1. Erosive gastritis primarily in the antrum, as well as duodenitis, primarily in the duodenal bulb. Cold biopsy was taken of the antrum of the stomach to rule out H. pylori. 2. Small hiatal hernia. 3. LA grade A esophagitis. 4. No evidence of gastric outlet obstruction. RECOMMENDATIONS: 1. Advance diet, and convert to oral Protonix. 2. Discontinue all nonsteroidal anti-inflammatory drugs. 3. Okay to discharge the patient home when the renal issues and nausea and vomiting resolve. 4. We will sign off, please call as needed. JOB# [id number] GABE/NTS
[2019-05-05] MEDS ORDERED: SUBLIMAZE ONE (17:52)
[2019-05-05] MEDS: HumaLOG SUB-Q SCH ×2 (18:43→22:07)
--- NOTE | 2019-05-05 18:44 | Post Anesthesia Evaluation ---
- Post Anesthesia Evaluation Patient Participated: Yes Airway Patent: Yes Stable Respiratory Function: Yes Nausea/Vomiting: No Temp > 96.8F: Yes Pain Manageable: Yes Adequeate Hydration: Yes Anesthesia Complications: No
[2019-05-05] MEDS: NACL 0.9% 1000 ML 1,000 ML IV SCH (18:47)
[2019-05-05 19:00] LABS: Chol/HDL Ratio 6.2 %
[2019-05-05] MEDS: DILAUDID IV PRN (19:27)
[2019-05-05] MEDS: ZOFRAN IV PRN (21:10)
[2019-05-05] MEDS: HEPARIN SUB-Q SCH (21:58)
[2019-05-05] MEDS ORDERED: PROTONIX IV SCH (22:00)
[2019-05-05] MEDS ORDERED: LANTUS SUB-Q SCH (22:00)
[2019-05-05] MEDS: AMBIEN PO PRN (22:03)
[2019-05-05] MEDS: FLEXERIL PO PRN (23:40)
[2019-05-06] MEDS: ZOFRAN IV PRN ×3 (02:25→22:27)
[2019-05-06] MEDS: SODIUM CHLORIDE FLUSH SYRINGE 10 ML IV PRN ×5 (02:27→22:27)
[2019-05-06] MEDS: DILAUDID IV PRN ×5 (02:28→22:27)
[2019-05-06] MEDS: REGLAN IV SCH ×4 (03:06→19:22)
[2019-05-06 05:56] LABS: Basophils # (Auto) 0.1 K/mm3 (0.0-0.1); Basophils % (Auto) 0.7 % (0.0-1.8); Hematocrit 41.2 % (30.3-42.9); Lymphocytes % (Auto) 16.6 % (13.4-35.0); Mean Corpuscular HGB Conc 34 % (30-34); Mean Corpuscular Volume 92 fl (79-97); Monocytes # (Auto) 1.3 K/mm3 (0.0-0.8); Monocytes % (Auto) 11.2 % (0.0-7.3); Platelet Count 270 K/mm3 (140-440); Red Blood Count 4.47 M/mm3 (3.65-5.03); Red Cell Distribution Width 13.5 % (13.2-15.2)
[2019-05-06] MEDS: NACL 0.9% 1000 ML 1,000 ML IV SCH (05:58)
[2019-05-06 06:19] LABS: Alanine Aminotransferase 8 units/L (7-56); Albumin 3.8 g/dL (3.9-5); BUN/Creatinine Ratio 33; Blood Urea Nitrogen 20 mg/dL (7-17); Calcium 8.3 mg/dL (8.4-10.2); Hemolysis Index 36
[2019-05-06] MEDS: HEPARIN SUB-Q SCH ×3 (06:20→20:59)
[2019-05-06 06:33] LABS: Basophils % (Auto) 0.4 % (0.0-1.8); Hematocrit 41.6 % (30.3-42.9); Hemoglobin 14.2 gm/dl (10.1-14.3); Lymphocytes # (Auto) 2.4 K/mm3 (1.2-5.4); Lymphocytes % (Auto) 20.2 % (13.4-35.0); Mean Corpuscular HGB Conc 34 % (30-34); Mean Corpuscular Volume 91 fl (79-97); Monocytes # (Auto) 1.2 K/mm3 (0.0-0.8); Monocytes % (Auto) 10.6 % (0.0-7.3); Platelet Count 291 K/mm3 (140-440); Red Blood Count 4.59 M/mm3 (3.65-5.03); Red Cell Distribution Width 13.3 % (13.2-15.2)
[2019-05-06 06:53] LABS: BUN/Creatinine Ratio 30; Blood Urea Nitrogen 18 mg/dL (7-17); Calcium 8.5 mg/dL (8.4-10.2); Hemolysis Index 5
[2019-05-06] MEDS: FLEXERIL PO PRN (08:20)
[2019-05-06] MEDS: ROCEPHIN/NS 1 GM/50 ML 1 GM/50 ML BAG IV SCH (09:48)
[2019-05-06] MEDS: HumaLOG SUB-Q SCH (09:50)
[2019-05-06] MEDS ORDERED: PROTONIX PO SCH ×2 (10:00→12:00)
[2019-05-06] MEDS: SODIUM CHLORIDE FLUSH SYRINGE 10 ML IV SCH ×2 (10:15→20:59)
[2019-05-06] MEDS: KCL 10MEQ/100ML 10 MEQ/100 ML BAG IV SCH ×3 (10:32→14:11)
[2019-05-06] MEDS ORDERED: PROTONIX IV SCH ×2 (11:00→12:00)
[2019-05-06] MEDS ORDERED: CARAFATE PO SCH (11:30)
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
[2019-05-06] MEDS: PROTONIX IV SCH ×2 (14:11→20:59)
[2019-05-06] MEDS ORDERED: HABITROL TD ONE (15:39)
[2019-05-06] MEDS: CARAFATE PO SCH ×2 (16:43→20:59)
[2019-05-06] MEDS: AMBIEN PO PRN (20:59)
[2019-05-07] MEDS: REGLAN IV SCH ×4 (05:17→17:51)
[2019-05-07] MEDS: DILAUDID IV PRN ×4 (05:31→22:05)
[2019-05-07] MEDS: CARAFATE PO SCH ×5 (05:31→21:56)
[2019-05-07] MEDS: HEPARIN SUB-Q SCH ×3 (05:41→21:56)
[2019-05-07] MEDS: SODIUM CHLORIDE FLUSH SYRINGE 10 ML IV PRN (05:42)
[2019-05-07 06:46] LABS: Basophils % (Auto) 0.4 % (0.0-1.8); Eosinophils % (Auto) 0.4 % (0.0-4.3); Hematocrit 38.3 % (30.3-42.9); Hemoglobin 13.2 gm/dl (10.1-14.3); Lymphocytes # (Auto) 3.1 K/mm3 (1.2-5.4); Lymphocytes % (Auto) 34.4 % (13.4-35.0); Mean Corpuscular HGB Conc 34 % (30-34); Mean Corpuscular Volume 91 fl (79-97); Monocytes # (Auto) 1.2 K/mm3 (0.0-0.8); Monocytes % (Auto) 13.7 % (0.0-7.3); Platelet Count 273 K/mm3 (140-440); Red Blood Count 4.22 M/mm3 (3.65-5.03)
[2019-05-07 07:06] LABS: BUN/Creatinine Ratio 14; Blood Urea Nitrogen 7 mg/dL (7-17); Calcium 8.2 mg/dL (8.4-10.2); Hemolysis Index 5
[2019-05-07] MEDS: PROTONIX IV SCH ×2 (09:30→21:56)
[2019-05-07] MEDS: ROCEPHIN/NS 1 GM/50 ML 1 GM/50 ML BAG IV SCH (09:30)
[2019-05-07] MEDS: SODIUM CHLORIDE FLUSH SYRINGE 10 ML IV SCH ×2 (09:30→21:55)
--- NOTE | 2019-05-07 13:30 | Progress Note ---
Assessment and Plan Assessment and plan: Esophagitis,gastritis, Duodenitis With nausea and vomiting vomiting subsided but still c/o abd pain, nausea - Patient is on Reglan for symptomatic treatment - IV fluids - PPI Abdominal pain - Pain control Acute renal failure - likely due to dehydration - IV fluids - Resolved Dehydration - IV fluids Hyperglycemia - A1c is 5.2 D/C SSI UTI - On rocephin Substance abuse - UDS id positive for marijuana. DVT prophylaxis - On heparin Poss dc home tomorrow History Interval history: Still having abd pain Did not tolerate food nausea Hospitalist Physical - Physical exam Narrative exam: Gen: Not in acute distress, lying in bed, HEENT: Normocephalic, atraumatic Neck: supple, no JVD Heart: S1 and S2 reg, no murmurs, rubs or gallop Lungs: Clear to auscultation, no rhonchi, no wheeze Abd: soft, tender epigastric and mid-abdomen, no rebound tenderness, , non distended, normal BS, Ext: No edema, no clubbing, no cyanosis Neuro: Awake, alert, oriented X 3, no focal neurological signs - Constitutional Vitals: Temp Pulse Resp BP Pulse Ox 98.4 F 64 18 119/58 99 05/07/19 08:40 05/07/19 08:40 05/07/19 08:40 05/07/19 08:40 05/07/19 08:40 Results - Labs CBC & Chem 7: 05/07/19 05:44 05/07/19 05:44 Labs: Laboratory Last Values WBC 9.1 K/mm3 (4.5-11.0) 05/07/19 05:44 RBC 4.22 M/mm3 (3.65-5.03) 05/07/19 05:44 Hgb 13.2 gm/dl (10.1-14.3) 05/07/19 05:44 Hct 38.3 % (30.3-42.9) 05/07/19 05:44 MCV 91 fl (79-97) 05/07/19 05:44 MCH 31 pg (28-32) 05/07/19 05:44 MCHC 34 % (30-34) 05/07/19 05:44 RDW 13.0 % (13.2-15.2) L 05/07/19 05:44 Plt Count 273 K/mm3 (140-440) 05/07/19 05:44 Lymph % (Auto) 34.4 % (13.4-35.0) 05/07/19 05:44 [place] % (Auto) 13.7 % (0.0-7.3) H 05/07/19 05:44 Eos % (Auto) 0.4 % (0.0-4.3) 05/07/19 05:44 Baso % (Auto) 0.4 % (0.0-1.8) 05/07/19 05:44 Lymph # 3.1 K/mm3 (1.2-5.4) 05/07/19 05:44 [place] # 1.2 K/mm3 (0.0-0.8) H 05/07/19 05:44 Eos # 0.0 K/mm3 (0.0-0.4) 05/07/19 05:44 Baso # 0.0 K/mm3 (0.0-0.1) 05/07/19 05:44 Seg Neutrophils % 51.1 % (40.0-70.0) 05/07/19 05:44 Seg Neutrophils # 4.6 K/mm3 (1.8-7.7) 05/07/19 05:44 VBG pH 7.408 (7.320-7.420) 05/05/19 04:49 Sodium 141 mmol/L (137-145) 05/07/19 05:44 Potassium 3.3 mmol/L (3.6-5.0) L 05/07/19 05:44 Chloride 107.3 mmol/L (98-107) H 05/07/19 05:44 Carbon Dioxide 22 mmol/L (22-30) 05/07/19 05:44 Anion Gap 15 mmol/L 05/07/19 05:44 BUN 7 mg/dL (7-17) 05/07/19 05:44 Creatinine 0.5 mg/dL (0.7-1.2) L 05/07/19 05:44 Estimated GFR > 60 ml/min 05/07/19 05:44 BUN/Creatinine Ratio 14 % 05/07/19 05:44 Glucose 97 mg/dL (65-100) 05/07/19 05:44 POC Glucose 89 (70-105) 05/06/19 16:45 Hemoglobin A1c 5.2 % (4-6) 05/05/19 18:26 Ketones Quantitative Negative (Negative) 05/05/19 04:49 Lactic Acid 1.10 mmol/L (0.7-2.0) 05/05/19 09:28 Calcium 8.2 mg/dL (8.4-10.2) L 05/07/19 05:44 Total Bilirubin 0.70 mg/dL (0.1-1.2) 05/06/19 05:11 AST 15 units/L (5-40) 05/06/19 05:11 ALT 8 units/L (7-56) 05/06/19 05:11 Alkaline Phosphatase 69 units/L (35-129) 05/06/19 05:11 Total Protein 7.1 g/dL (6.3-8.2) D 05/06/19 05:11 Albumin 3.8 g/dL (3.9-5) L 05/06/19 05:11 Albumin/Globulin Ratio 1.2 % 05/06/19 05:11 Triglycerides 211 mg/dL (2-149) H 05/05/19 18:26 Cholesterol 186 mg/dL (50-199) 05/05/19 18:26 LDL Cholesterol Direct 137 mg/dL (50-130) H 05/05/19 18:26 HDL Cholesterol 30 mg/dL (40-59) L 05/05/19 18:26 Cholesterol/HDL Ratio 6.20 % 05/05/19 18:26 HCG, Qual Negative (Negative) 05/05/19 03:39 Urine Color Yellow (Yellow) 05/05/19 09:13 Urine Turbidity Cloudy (Clear) 05/05/19 09:13 Urine pH 5.0 (5.0-7.0) 05/05/19 09:13 Ur Specific [place] 1.027 (1.003-1.030) 05/05/19 09:13 Urine Protein 100 mg/dl mg/dL (Negative) 05/05/19 09:13 Urine Glucose (UA) Neg mg/dL (Negative) 05/05/19 09:13 Urine Ketones Tr mg/dL (Negative) 05/05/19 09:13 Urine Blood Mod (Negative) 05/05/19 09:13 Urine Nitrite Neg (Negative) 05/05/19 09:13 Urine Bilirubin Neg (Negative) 05/05/19 09:13 Urine Urobilinogen < 2.0 mg/dL (<2.0) 05/05/19 09:13 Ur Leukocyte Esterase Mod (Negative) 05/05/19 09:13 Urine WBC (Auto) 31.0 /HPF (0.0-6.0) H 05/05/19 09:13 Urine RBC (Auto) 9.0 /HPF (0.0-6.0) 05/05/19 09:13 U Epithel Cells (Auto) 12.0 /HPF (0-13.0) 05/05/19 09:13 Urine Bacteria (Auto) 2+ /HPF (Negative) 05/05/19 09:13 Urine Mucus 3+ /HPF 05/05/19 09:13 Urine Opiates Screen Presumptive positive 05/05/19 09:13 Urine Methadone Screen Presumptive negative 05/05/19 09:13 Ur Barbiturates Screen Presumptive negative 05/05/19 09:13 Ur Phencyclidine Scrn Presumptive negative 05/05/19 09:13 Ur Amphetamines Screen Presumptive negative 05/05/19 09:13 U Benzodiazepines Scrn Presumptive negative 05/05/19 09:13 Urine Cocaine Screen Presumptive negative 05/05/19 09:13 U Marijuana (THC) Screen Presumptive positive 05/05/19 09:13 Drugs of Abuse Note Disclamer 05/05/19 09:13 Active Medications - Current Medications Current Medications: Generic Name Dose Route Start Last Admin Trade Name Freq PRN Reason Stop Dose Admin Acetaminophen 650 mg 05/05/19 11:30 Tylenol PO Q4H PRN Pain MILD(1-3)/Fever >100.5/WALLACE Cyclobenzaprine HCl 5 mg 05/05/19 23:22 05/06/19 08:20 Flexeril PO 5 mg Q8H PRN Administration Muscle Spasm Heparin Sodium (Porcine) 5,000 unit 05/05/19 22:00 05/07/19 05:41 Heparin SUB-Q 5,000 unit Q8HR CHAD Administration Hydromorphone HCl 0.5 mg 05/06/19 11:18 05/07/19 09:30 Dilaudid IV 0.5 mg Q4H PRN Administration Pain, Moderate (4-6) Ceftriaxone Sodium 1 gm in 50 mls @ 100 mls/hr 05/05/19 12:00 05/07/19 09:30 Rocephin/Ns 1 Gm/50 Ml IV 100 mls/hr Q24HR CHAD Administration Protocol Metoclopramide HCl 10 mg 05/05/19 12:00 05/07/19 12:24 Reglan IV 10 mg Q6H CHAD Administration Ondansetron HCl 4 mg 05/05/19 19:22 05/06/19 22:27 Zofran IV 4 mg Q4H PRN Administration Nausea And Vomiting Pantoprazole Sodium 40 mg 05/06/19 12:00 05/07/19 09:30 Protonix IV 40 mg BID CHAD Administration Sodium Chloride 10 ml 05/05/19 12:00 05/07/19 09:30 Sodium Chloride Flush Syringe 10 Ml IV 10 ml BID CHAD Administration Sodium Chloride 10 ml 05/05/19 11:30 05/07/19 05:42 Sodium Chloride Flush Syringe 10 Ml IV 10 ml PRN PRN Administration LINE FLUSH Sucralfate 1 gm 05/06/19 16:30 05/07/19 12:24 Carafate PO 1 gm ACHS CHAD Administration Zolpidem Tartrate 5 mg 05/05/19 11:30 05/06/19 20:59 Ambien PO 5 mg QHS PRN Administration Insomnia
[2019-05-07] MEDS: AMBIEN PO PRN (21:55)
[2019-05-08] MEDS: SODIUM CHLORIDE FLUSH SYRINGE 10 ML IV PRN (01:13)
[2019-05-08] MEDS: REGLAN IV SCH ×5 (01:13→22:41)
[2019-05-08] MEDS: FLEXERIL PO PRN ×2 (01:18→23:19)
[2019-05-08] MEDS: HEPARIN SUB-Q SCH ×4 (06:46→22:46)
[2019-05-08] MEDS: DILAUDID IV PRN ×2 (06:46→10:23)
[2019-05-08] MEDS: CARAFATE PO SCH ×4 (07:31→22:48)
[2019-05-08] MEDS ORDERED: ATIVAN IV NR (09:07)
[2019-05-08] MEDS: PROTONIX IV SCH ×2 (09:19→22:42)
--- NOTE | 2019-05-08 09:35 | Progress Note ---
Assessment and Plan 1. N/V/D - acute today. Had been admitted with same, and had EGD showing mild inflammation. Stool seen in toilet, no blood visible. Pt and mother anxious. - etiology of acute recurrence unclear. May be acute self-limited toxic/infectious process. - will check labs - will give low dose Ativan. - minimize narcotics. Subjective Date of service: 05/08/19 Interval history: Asked to see pt for recurrent crampy abd pain with N/V/diarrhea with dark liquid stool. Pt had symptoms this AM. Was doing great yesterday. Objective - Constitutional Vitals: Vital Signs - 12hr 05/07/19 05/08/19 05/08/19 23:01 04:25 05:16 Temperature 98.3 F 98.3 F Pulse Rate 70 59 L 57 L Respiratory 20 20 Rate Blood Pressure 111/69 111/51 O2 Sat by Pulse 99 99 Oximetry 05/08/19 05/08/19 07:16 08:40 Temperature Pulse Rate 55 L Respiratory 22 Rate Blood Pressure O2 Sat by Pulse Oximetry General appearance: Present: mild distress - EENT Eyes: PERRL, EOM intact ENT: hearing intact - Respiratory Respiratory effort: normal - Gastrointestinal General gastrointestinal: Present: soft, tender (Mild, diffuse) - Labs CBC & Chem 7: 05/07/19 05:44 05/07/19 05:44 Medications & Allergies - Medications Allergies/Adverse Reactions: Allergies No Known Allergies Allergy (Verified 01/29/19 18:16) Home Medications: Home Medications Medication Instructions Recorded Confirmed Last Taken Type Cephalexin [Keflex] 500 mg PO BID #20 capsule 11/14/17 Unknown Rx Ibuprofen [Motrin 800 MG tab] 800 mg PO Q8HR PRN #15 tablet 11/14/17 Unknown Rx Ketorolac [Toradol] 10 mg PO Q6H PRN #15 tablet 01/29/19 Unknown Rx methOCARBAMOL [Robaxin] 750 mg PO Q8H PRN #21 tablet 01/29/19 Unknown Rx methOCARBAMOL [Robaxin TAB] 750 mg PO Q8H #20 tablet 03/10/19 Unknown Rx predniSONE [Deltasone] 20 mg PO QDAY #7 tab 03/10/19 Unknown Rx Active Medications: Generic Name Dose Route Start Last Admin Trade Name Freq PRN Reason Stop Dose Admin Acetaminophen 650 mg 05/05/19 11:30 Tylenol PO Q4H PRN Pain MILD(1-3)/Fever >100.5/WALLACE Cyclobenzaprine HCl 5 mg 05/05/19 23:22 05/08/19 01:18 Flexeril PO 5 mg Q8H PRN Administration Muscle Spasm Heparin Sodium (Porcine) 5,000 unit 05/05/19 22:00 05/08/19 06:46 Heparin SUB-Q 5,000 unit Q8HR CHAD Administration Hydromorphone HCl 0.5 mg 05/06/19 11:18 05/08/19 06:46 Dilaudid IV 0.5 mg Q4H PRN Administration Pain, Moderate (4-6) Ceftriaxone Sodium 1 gm in 50 mls @ 100 mls/hr 05/05/19 12:00 05/07/19 09:30 Rocephin/Ns 1 Gm/50 Ml IV 100 mls/hr Q24HR CHAD Administration Protocol Lorazepam 0.5 mg 05/08/19 09:07 05/08/19 09:19 Ativan IV 05/08/19 10:07 0.5 mg ONCE NR Administration Metoclopramide HCl 10 mg 05/05/19 12:00 05/08/19 06:46 Reglan IV 10 mg Q6H CHAD Administration Ondansetron HCl 4 mg 05/05/19 19:22 05/06/19 22:27 Zofran IV 4 mg Q4H PRN Administration Nausea And Vomiting Pantoprazole Sodium 40 mg 05/06/19 12:00 05/08/19 09:19 Protonix IV 40 mg BID CHAD Administration Sodium Chloride 10 ml 05/05/19 12:00 05/07/19 21:55 Sodium Chloride Flush Syringe 10 Ml IV 10 ml BID CHAD Administration Sodium Chloride 10 ml 05/05/19 11:30 05/08/19 01:13 Sodium Chloride Flush Syringe 10 Ml IV 10 ml PRN PRN Administration LINE FLUSH Sucralfate 1 gm 05/06/19 16:30 05/08/19 07:31 Carafate PO 1 gm ACHS CHAD Administration Zolpidem Tartrate 5 mg 05/05/19 11:30 05/07/19 21:55 Ambien PO 5 mg QHS PRN Administration Insomnia
[2019-05-08] MEDS ORDERED: ATIVAN IV PRN (09:37)
--- NOTE | 2019-05-08 10:11 | Progress Note ---
Assessment and Plan Assessment and plan: Esophagitis,gastritis, Duodenitis With nausea and vomiting vomiting had subsided but again started nausea, vomiting worse today Reconsulted GI - Patient is on Reglan for symptomatic treatment - IV fluids - PPI patient c/o dark blood in stools Stool seen in toilet by CECIL and no blood as per GI Abdominal pain - Pain control Acute renal failure - likely due to dehydration - IV fluids - Resolved Dehydration - IV fluids Hyperglycemia - A1c is 5.2 D/C SSI UTI - On rocephin Substance abuse - UDS id positive for marijuana. DVT prophylaxis - On heparin Poss dc home tomorrow if nausea/vomiting resolved. History Interval history: Still having abd pain Did not tolerate food More nausea, vomiting abd pain today dark stools today Hospitalist Physical - Physical exam Narrative exam: Gen: Not in acute distress, lying in bed, HEENT: Normocephalic, atraumatic Neck: supple, no JVD Heart: S1 and S2 reg, no murmurs, rubs or gallop Lungs: Clear to auscultation, no rhonchi, no wheeze Abd: soft, tender epigastric and mid-abdomen, no rebound tenderness, , non distended, normal BS, Ext: No edema, no clubbing, no cyanosis Neuro: Awake, alert, oriented X 3, no focal neurological signs - Constitutional Vitals: Temp Pulse Resp BP Pulse Ox 98.3 F 55 L 22 111/51 99 05/08/19 05:16 05/08/19 08:40 05/08/19 07:16 05/08/19 05:16 05/08/19 05:16 Results - Labs CBC & Chem 7: 05/08/19 09:42 05/08/19 09:42 Labs: Laboratory Last Values WBC 9.1 K/mm3 (4.5-11.0) 05/07/19 05:44 RBC 4.22 M/mm3 (3.65-5.03) 05/07/19 05:44 Hgb 13.2 gm/dl (10.1-14.3) 05/07/19 05:44 Hct 38.3 % (30.3-42.9) 05/07/19 05:44 MCV 91 fl (79-97) 05/07/19 05:44 MCH 31 pg (28-32) 05/07/19 05:44 MCHC 34 % (30-34) 05/07/19 05:44 RDW 13.0 % (13.2-15.2) L 05/07/19 05:44 Plt Count 273 K/mm3 (140-440) 05/07/19 05:44 Lymph % (Auto) 34.4 % (13.4-35.0) 05/07/19 05:44 [place] % (Auto) 13.7 % (0.0-7.3) H 05/07/19 05:44 Eos % (Auto) 0.4 % (0.0-4.3) 05/07/19 05:44 Baso % (Auto) 0.4 % (0.0-1.8) 05/07/19 05:44 Lymph # 3.1 K/mm3 (1.2-5.4) 05/07/19 05:44 [place] # 1.2 K/mm3 (0.0-0.8) H 05/07/19 05:44 Eos # 0.0 K/mm3 (0.0-0.4) 05/07/19 05:44 Baso # 0.0 K/mm3 (0.0-0.1) 05/07/19 05:44 Seg Neutrophils % 51.1 % (40.0-70.0) 05/07/19 05:44 Seg Neutrophils # 4.6 K/mm3 (1.8-7.7) 05/07/19 05:44 VBG pH 7.408 (7.320-7.420) 05/05/19 04:49 Sodium 141 mmol/L (137-145) 05/07/19 05:44 Potassium 3.3 mmol/L (3.6-5.0) L 05/07/19 05:44 Chloride 107.3 mmol/L (98-107) H 05/07/19 05:44 Carbon Dioxide 22 mmol/L (22-30) 05/07/19 05:44 Anion Gap 15 mmol/L 05/07/19 05:44 BUN 7 mg/dL (7-17) 05/07/19 05:44 Creatinine 0.5 mg/dL (0.7-1.2) L 05/07/19 05:44 Estimated GFR > 60 ml/min 05/07/19 05:44 BUN/Creatinine Ratio 14 % 05/07/19 05:44 Glucose 97 mg/dL (65-100) 05/07/19 05:44 POC Glucose 89 (70-105) 05/06/19 16:45 Hemoglobin A1c 5.2 % (4-6) 05/05/19 18:26 Ketones Quantitative Negative (Negative) 05/05/19 04:49 Lactic Acid 1.10 mmol/L (0.7-2.0) 05/05/19 09:28 Calcium 8.2 mg/dL (8.4-10.2) L 05/07/19 05:44 Total Bilirubin 0.70 mg/dL (0.1-1.2) 05/06/19 05:11 AST 15 units/L (5-40) 05/06/19 05:11 ALT 8 units/L (7-56) 05/06/19 05:11 Alkaline Phosphatase 69 units/L (35-129) 05/06/19 05:11 Total Protein 7.1 g/dL (6.3-8.2) D 05/06/19 05:11 Albumin 3.8 g/dL (3.9-5) L 05/06/19 05:11 Albumin/Globulin Ratio 1.2 % 05/06/19 05:11 Triglycerides 211 mg/dL (2-149) H 05/05/19 18:26 Cholesterol 186 mg/dL (50-199) 05/05/19 18:26 LDL Cholesterol Direct 137 mg/dL (50-130) H 05/05/19 18:26 HDL Cholesterol 30 mg/dL (40-59) L 05/05/19 18:26 Cholesterol/HDL Ratio 6.20 % 05/05/19 18:26 HCG, Qual Negative (Negative) 05/05/19 03:39 Urine Color Yellow (Yellow) 05/05/19 09:13 Urine Turbidity Cloudy (Clear) 05/05/19 09:13 Urine pH 5.0 (5.0-7.0) 05/05/19 09:13 Ur Specific [place] 1.027 (1.003-1.030) 05/05/19 09:13 Urine Protein 100 mg/dl mg/dL (Negative) 05/05/19 09:13 Urine Glucose (UA) Neg mg/dL (Negative) 05/05/19 09:13 Urine Ketones Tr mg/dL (Negative) 05/05/19 09:13 Urine Blood Mod (Negative) 05/05/19 09:13 Urine Nitrite Neg (Negative) 05/05/19 09:13 Urine Bilirubin Neg (Negative) 05/05/19 09:13 Urine Urobilinogen < 2.0 mg/dL (<2.0) 05/05/19 09:13 Ur Leukocyte Esterase Mod (Negative) 05/05/19 09:13 Urine WBC (Auto) 31.0 /HPF (0.0-6.0) H 05/05/19 09:13 Urine RBC (Auto) 9.0 /HPF (0.0-6.0) 05/05/19 09:13 U Epithel Cells (Auto) 12.0 /HPF (0-13.0) 05/05/19 09:13 Urine Bacteria (Auto) 2+ /HPF (Negative) 05/05/19 09:13 Urine Mucus 3+ /HPF 05/05/19 09:13 Urine Opiates Screen Presumptive positive 05/05/19 09:13 Urine Methadone Screen Presumptive negative 05/05/19 09:13 Ur Barbiturates Screen Presumptive negative 05/05/19 09:13 Ur Phencyclidine Scrn Presumptive negative 05/05/19 09:13 Ur Amphetamines Screen Presumptive negative 05/05/19 09:13 U Benzodiazepines Scrn Presumptive negative 05/05/19 09:13 Urine Cocaine Screen Presumptive negative 05/05/19 09:13 U Marijuana (THC) Screen Presumptive positive 05/05/19 09:13 Drugs of Abuse Note Disclamer 05/05/19 09:13 Active Medications - Current Medications Current Medications: Generic Name Dose Route Start Last Admin Trade Name Freq PRN Reason Stop Dose Admin Acetaminophen 650 mg 05/05/19 11:30 Tylenol PO Q4H PRN Pain MILD(1-3)/Fever >100.5/WALLACE Cyclobenzaprine HCl 5 mg 05/05/19 23:22 05/08/19 01:18 Flexeril PO 5 mg Q8H PRN Administration Muscle Spasm Heparin Sodium (Porcine) 5,000 unit 05/05/19 22:00 05/08/19 06:46 Heparin SUB-Q 5,000 unit Q8HR CHAD Administration Ceftriaxone Sodium 1 gm in 50 mls @ 100 mls/hr 05/05/19 12:00 05/07/19 09:30 Rocephin/Ns 1 Gm/50 Ml IV 100 mls/hr Q24HR CHAD Administration Protocol Metoclopramide HCl 10 mg 05/05/19 12:00 05/08/19 06:46 Reglan IV 10 mg Q6H CHAD Administration Ondansetron HCl 4 mg 05/05/19 19:22 05/06/19 22:27 Zofran IV 4 mg Q4H PRN Administration Nausea And Vomiting Pantoprazole Sodium 40 mg 05/06/19 12:00 05/08/19 09:19 Protonix IV 40 mg BID CHAD Administration Sodium Chloride 10 ml 05/05/19 12:00 05/07/19 21:55 Sodium Chloride Flush Syringe 10 Ml IV 10 ml BID CHAD Administration Sodium Chloride 10 ml 05/05/19 11:30 05/08/19 01:13 Sodium Chloride Flush Syringe 10 Ml IV 10 ml PRN PRN Administration LINE FLUSH Sucralfate 1 gm 05/06/19 16:30 05/08/19 07:31 Carafate PO 1 gm ACHS CHAD Administration Zolpidem Tartrate 5 mg 05/05/19 11:30 05/07/19 21:55 Ambien PO 5 mg QHS PRN Administration Insomnia
[2019-05-08] MEDS: ROCEPHIN/NS 1 GM/50 ML 1 GM/50 ML BAG IV SCH (10:22)
[2019-05-08] MEDS: SODIUM CHLORIDE FLUSH SYRINGE 10 ML IV SCH ×2 (10:28→22:48)
[2019-05-08 10:33] LABS: Basophils # (Auto) 0.1 K/mm3 (0.0-0.1); Basophils % (Auto) 0.6 % (0.0-1.8); Eosinophils % (Auto) 0.3 % (0.0-4.3); Hematocrit 40.6 % (30.3-42.9); Hemoglobin 13.9 gm/dl (10.1-14.3); Lymphocytes # (Auto) 1.5 K/mm3 (1.2-5.4); Lymphocytes % (Auto) 17.3 % (13.4-35.0); Mean Corpuscular HGB Conc 34 % (30-34); Mean Corpuscular Volume 92 fl (79-97); Monocytes # (Auto) 0.9 K/mm3 (0.0-0.8); Monocytes % (Auto) 10.3 % (0.0-7.3); Red Blood Count 4.41 M/mm3 (3.65-5.03); Red Cell Distribution Width 12.8 % (13.2-15.2)
[2019-05-08 10:56] LABS: Alanine Aminotransferase 34 units/L (7-56); Albumin 3.7 g/dL (3.9-5); BUN/Creatinine Ratio 15; Blood Urea Nitrogen 6 mg/dL (7-17); Calcium 8.4 mg/dL (8.4-10.2); Hemolysis Index 15
[2019-05-08 11:27] LABS: Platelet Count 173 K/mm3 (140-440)
[2019-05-08] MEDS: ZOFRAN IV PRN ×2 (12:22→18:54)
[2019-05-08] MEDS ORDERED: NACL 0.9% 500 ML 500 ML ONE ×2 (14:08→17:53)
[2019-05-08] MEDS: KCL 10MEQ/100ML 10 MEQ/100 ML BAG IV SCH ×3 (14:09→18:53)
[2019-05-08] MEDS: AMBIEN PO PRN (22:53)
[2019-05-09] MEDS: REGLAN IV SCH ×3 (03:01→12:11)
[2019-05-09] MEDS: HEPARIN SUB-Q SCH (05:18)
[2019-05-09] MEDS: KCL 10MEQ/100ML 10 MEQ/100 ML BAG IV SCH ×3 (05:28→08:20)
[2019-05-09] MEDS: CARAFATE PO SCH ×2 (08:20→12:11)
[2019-05-09] MEDS ORDERED: NACL 0.9% 500 ML 500 ML ONE (08:27)
[2019-05-09] MEDS: PROTONIX IV SCH (10:26)
[2019-05-09] MEDS: SODIUM CHLORIDE FLUSH SYRINGE 10 ML IV SCH (10:26)
[2019-05-09] MEDS: ROCEPHIN/NS 1 GM/50 ML 1 GM/50 ML BAG IV SCH (10:26)
[2019-05-09 12:18] VITALS: BP 133/76
--- NOTE | 2019-05-09 12:20 | Discharge Summary ---
Providers - Providers Date of Admission: 05/05/19 09:10 Date of discharge: 05/09/19 Attending physician: AISHWARYA ORNELAS 05/05/19 11:30 Consult to Physician [CONS] Routine Comment: Consulting Provider: [facility] MEDINA Physician Instructions: Reason For Exam: intractable N/V 05/08/19 08:53 Consult to Physician [CONS] Routine Comment: Consulting Provider: [facility] MEDINA Physician Instructions: Reason For Exam: reconsult - still nausea, vomiting,abd pain Primary care physician: ORDNANCE KEEPER Hospitalization Reason for admission: intractable nausea and vomiting, hypokalemia, abdominal pain. Condition: Critical Pertinent studies: CT scan of abdomen and pelvis showed no acute events EGD with biopsy done showed mild gastritis Procedures: EGD that showed mild gastritis Hospital course: 43-year-old female with medical history significant for cholecystitis status post cholecystectomy [2012], marijuana abuse presented to the emergency department with complaints of intractable nausea and vomiting that started 2 days ago. Today she has dry heaving but persistent. Patient's complaining she reviewed epigastric and right lateral flank pain, 10 out of 10 intensity, pain is sharp, radiates to the back. Movement exacerbates the pain, pain meds help a little bit. Patient said she has loose stool when it started but BM after that. Patient has chronic back pain. Patient was not eating and drinking for the last 2 days. EGD was on fat. Findings were remarkable for erosive gastritis. Patient was placed on nothing by mouth, antiemetics, IV fluid. Hypokalemia identified and commenced on potassium supplementation. Nausea vomiting impro charles. Abdominal pain improved. Tolerating breakfast this morning. He is therefore being discharged today to follow up with primary care physician in 3-5 days. Condition on discharge satisfactory. Ongoing potassium supplementation at home and antiemetic prescribed. Disposition: DC-01 TO HOME OR SELFCARE Time spent for discharge: 35 min - Discharge Diagnoses (1) Abdominal pain Status: Acute Qualifiers: Abdominal location: generalized Qualified Code(s): R10.84 - Generalized abdominal pain (2) Intractable vomiting with nausea Status: Acute (3) Lactic acid acidosis Status: Acute (4) Renal failure Status: Acute Qualifiers: Renal failure chronicity: acute Acute renal failure type: unspecified Qualified Code(s): N17.9 - Acute kidney failure, unspecified (5) SIRS (systemic inflammatory response syndrome) Status: Acute Core Measure Documentation - Palliative Care Palliative Care/ Comfort Measures: Not Applicable - Core Measures Any of the following diagnoses?: none Exam - Physical Exam Narrative exam: Constitutional: Well-nourished well-developed. In no distress Head: Normocephalic atraumatic Eyes: Pupils are equal round and reactive to light Nose: No enlarged turbinates, no septal deviation. Mouth: Moist mucous membranes. Neck: Supple no thyromegaly. No bruit. No JVD Heart: Regular rate and rhythm, S1-S2 normal. No rubs murmurs or gallop Lungs: Clear to auscultation bilaterally. no rales or rhonchi Abdomen: Soft, nontender. Bowel sound are present. Extremities: No edema, no cyanosis, no clubbing. Neuro: Alert oriented Oriented x3. No focal sensory or motor deficit. Skin: No rashes or hyperpigmented spots Musculoskeletal system: No joint pain or swelling Hematological: No petechia or subcutanous hemorrhages. Immunological: No multiple septic spots on the skin Lymphatic: No generalized lymphadenopathy Psychiatry: Euthymic. Calm. - Constitutional Vitals: Temp Pulse Resp BP Pulse Ox 98.5 F 67 18 143/85 98 05/09/19 07:54 05/09/19 07:54 05/09/19 07:54 05/09/19 07:54 05/09/19 07:54 Plan Activity: advance as tolerated Weight Bearing Status: Weight Bear as Tolerated Diet: regular Follow up with: PRIMARY CARE, [Primary Care Provider] - 3-5 Days Prescriptions: Sucralfate [Carafate] 1 gm PO ACHS #90 oral.liqd Potassium Chloride [Klor-Con 8] 8 meq PO QDAY #5 tablet Pantoprazole [Protonix INJ] 40 mg IV BID #60 vial Ondansetron (Nf) [Zofran TAB] 8 mg PO Q8HR PRN #30 tablet PRN Reason: Nausea And Vomiting
== END 2019-05-09 14:05 | disposition home or self-care (01) | DRG 872 ==
LOC: ED 02:26 → 4A 09:10
PROVIDERS: ADMIT Internal Medicine; ATTEND Family Medicine
PROC: 0DB68ZX Excision of Stomach, Via Natural or Artificial Opening Endoscopic, Diagnostic (ICD-10-PCS; principal; 2019-05-05)
DX: A41.9 Sepsis, unspecified organism (principal); N17.9 Acute kidney failure, unspecified; E87.2 Acidosis; N30.01 Acute cystitis with hematuria; E86.0 Dehydration; R73.9 Hyperglycemia, unspecified; K21.0 Gastro-esophageal reflux disease with esophagitis; F12.10 Cannabis abuse, uncomplicated; G89.29 Other chronic pain; K25.9 Gastric ulcer, unspecified as acute or chronic, without hemorrhage or perforation; F11.10 Opioid abuse, uncomplicated; K29.70 Gastritis, unspecified, without bleeding; K44.9 Diaphragmatic hernia without obstruction or gangrene; K29.80 Duodenitis without bleeding; R65.20 Severe sepsis without septic shock; Z90.49 Acquired absence of other specified parts of digestive tract; Z71.89 Other specified counseling; Z98.51 Tubal ligation status
CPT/HCPCS: 36415; 74176; 80048; 80053; 80061; 80307; 81001; 82010; 82140; 82270; 82805; 82962; 83036; 84132; 84703; 85025; 87040; 87086; 88305; 88342; 96365; 96367; 96372; 96375; 96376; G0378; C9113; J0692; J0696; J1170; J1644; J1815; J1885; J2060; J2270; J2405; J2704; J2765; J3010; J3480; J7030; J7040